=== PATIENT | female | born 1970 | race Caucasian/White ===

== ENCOUNTER 2021-01-19 07:30 | Inpatient (IN) | payer OTHER ==
[~2021-01-19] VITALS: Ht 160 cm; Wt 64.6 kg
[~2021-01-19 07:30] MED LIST changes: -AMLODIPINE BESY10 MG PO; -CEFDINIR300 MG PO; -DOXYCYCLINE MO100 MG PO; -LANTUS100 UNIT/1 SQ; -LISPRO SQ; -METOPROLOL SUCC25 MG PO; -REMERON 15 MG T15 MG PO
[2021-01-19] MEDS ORDERED: CEFDINIR300 MG PO (14:20)
[2021-01-19] MEDS ORDERED: DOXYCYCLINE MO100 MG PO (14:21)
[2021-01-19] MEDS ORDERED: METOPROLOL SUCC25 MG PO (14:22)
[2021-01-19] MEDS ORDERED: INSULIN LI100 UNIT/1 SQ (14:26)
[2021-01-19] MEDS ORDERED: REMERON 15 MG T15 MG PO (14:27)
[2021-01-19] MEDS ORDERED: HYDRALAZINE HCL50 MG PO (14:27)
[2021-01-19] MEDS ORDERED: LISINOPRIL10 MG PO (14:28)
[2021-01-19] MEDS ORDERED: LANTUS100 UNIT/1 SQ (14:29)
[2021-01-28 13:19] LABS: HEMOGLOBIN 10.3 gm/dl (12.3-15.3); RED BLOOD COUNT 3.41 M/UL (4.00-5.10); WHITE BLOOD COUNT 6.3 K/UL (4.5-11.0)
[2021-01-29] MEDS ORDERED: CARVEDILOL6.25 MG PO (10:02)
[2021-01-29] MEDS ORDERED: ISOSORBIDE MONO30 MG PO (10:03)
[2021-01-29] MEDS ORDERED: VITAMIN B-12100 MCG PO (10:03)
[2021-01-29] MEDS ORDERED: VITAMIN D325 MCG PO (10:04)
[2021-01-29 10:34] LABS: HEMOGLOBIN 10.1 gm/dl (12.3-15.3); RED BLOOD COUNT 3.35 M/UL (4.00-5.10); WHITE BLOOD COUNT 7.3 K/UL (4.5-11.0)
--- NOTE | 2021-01-29 13:22 | NUR ---
PT GONE TO SX AT THIS TIME VIA BED
[2021-01-29] MEDS ORDERED: AMLODIPINE BESY10 MG PO (14:19)
[2021-01-30 09:36] LABS: RED BLOOD COUNT 2.65 M/UL (4.00-5.10); WHITE BLOOD COUNT 9.6 K/UL (4.5-11.0)
[2021-01-31 07:00] LABS: RED BLOOD COUNT 2.4 M/UL (4.00-5.10); WHITE BLOOD COUNT 9.5 K/UL (4.5-11.0)
[2021-01-31 10:13] LABS: HBSAG SCREEN Negative (Negative); HEP A AB, IGM Negative (Negative); HEP B CORE AB, IGM Negative (Negative); HEP C VIRUS AB 0.3 (0.0-0.9)
[2021-02-01 08:28] LABS: HEMOGLOBIN 8.4 gm/dl (12.3-15.3); WHITE BLOOD COUNT 9.1 K/UL (4.5-11.0)
[2021-02-01 08:30] LABS: RED BLOOD COUNT 2.98 M/UL (4.00-5.10)
[2021-02-02 03:42] LABS: HEMOGLOBIN 7.6 gm/dl (12.3-15.3); WHITE BLOOD COUNT 8.3 K/UL (4.5-11.0)
[2021-02-02 03:45] LABS: RED BLOOD COUNT 2.64 M/UL (4.00-5.10)
[2021-02-03 03:03] LABS: HEMOGLOBIN 8.2 gm/dl (12.3-15.3); RED BLOOD COUNT 2.75 M/UL (4.00-5.10); WHITE BLOOD COUNT 8.7 K/UL (4.5-11.0)
[2021-02-04 02:56] LABS: HEMOGLOBIN 8.2 gm/dl (12.3-15.3); RED BLOOD COUNT 2.77 M/UL (4.00-5.10); WHITE BLOOD COUNT 7.3 K/UL (4.5-11.0)
[2021-02-05 07:33] LABS: HEMOGLOBIN 7.6 gm/dl (12.3-15.3); RED BLOOD COUNT 2.62 M/UL (4.00-5.10)
[2021-02-05 07:34] LABS: WHITE BLOOD COUNT 9.3 K/UL (4.5-11.0)
[2021-02-06 07:35] LABS: HEMOGLOBIN 7.7 gm/dl (12.3-15.3); RED BLOOD COUNT 2.68 M/UL (4.00-5.10)
[2021-02-06 07:39] LABS: WHITE BLOOD COUNT 11.7 K/UL (4.5-11.0)
[2021-02-06] MEDS ORDERED: [UNRECOGNIZED DRUG - OTHER] IV (11:50)
[2021-02-06] MEDS ORDERED: VANCOMYCIN750 MG/151 IV (11:50)
[2021-02-06] MEDS ORDERED: IPRAT-ALBUT 0.5-3 ML NEB (13:38)
[2021-02-06] MEDS ORDERED: PERCOCET 10-321 EACH PO (13:38)
[2021-02-06] MEDS ORDERED: GABAPENTIN100 MG PO (13:38)
[2021-02-06] MEDS ORDERED: METOPROLOL SUCC50 MG PO (13:38)
[2021-02-06] MEDS ORDERED: RETACRIT10000 UNIT SC (13:38)
[2021-02-06] MEDS ORDERED: HUMALOG 10100 UNITS/ SC (13:38)
== END 2021-02-06 20:36 | DRG 463 ==
LOC: ZOBSOF 01-28 07:18 → PROG CARE 01-28 07:18 → M/S 01-28 07:18 → PROG CARE 01-29 19:43 → M/S 02-05 15:21
PROVIDERS: Internal Medicine; Internal Medicine Nephrology; Orthopaedic Surgery; Physician Assistant; ADMIT Internal Medicine
PROC: 0SPC0JZ Removal of Synthetic Substitute from Right Knee Joint, Open Approach (ICD-10-PCS; 2021-01-29)
PROC: 0Y6C0Z3 Detachment at Right Upper Leg, Low, Open Approach (ICD-10-PCS; 2021-01-29)
PROC: 30233N1 Transfusion of Nonautologous Red Blood Cells into Peripheral Vein, Percutaneous Approach (ICD-10-PCS; principal; 2021-01-29 14:00)
PROC: 5A1D70Z Performance of Urinary Filtration, Intermittent, Less than 6 Hours Per Day (ICD-10-PCS; 2021-01-30)
DX: T84.53XA Infection and inflammatory reaction due to internal right knee prosthesis, initial encounter (principal); N18.6 End stage renal disease; I12.0 Hypertensive chronic kidney disease with stage 5 chronic kidney disease or end stage renal disease; I42.0 Dilated cardiomyopathy; M86.651 Other chronic osteomyelitis, right thigh; D62 Acute posthemorrhagic anemia; E11.69 Type 2 diabetes mellitus with other specified complication; E11.22 Type 2 diabetes mellitus with diabetic chronic kidney disease; K21.9 Gastro-esophageal reflux disease without esophagitis; G25.81 Restless legs syndrome; E03.9 Hypothyroidism, unspecified; E87.5 Hyperkalemia; F17.200 Nicotine dependence, unspecified, uncomplicated; E78.5 Hyperlipidemia, unspecified; F19.10 Other psychoactive substance abuse, uncomplicated; Z96.651 Presence of right artificial knee joint; D63.1 Anemia in chronic kidney disease; J44.9 Chronic obstructive pulmonary disease, unspecified; Z99.2 Dependence on renal dialysis; Z90.49 Acquired absence of other specified parts of digestive tract; Z90.89 Acquired absence of other organs; Z98.890 Other specified postprocedural states; Z79.82 Long term (current) use of aspirin; Z79.899 Other long term (current) drug therapy; Z88.0 Allergy status to penicillin; Z82.3 Family history of stroke; Z83.3 Family history of diabetes mellitus; Z79.4 Long term (current) use of insulin
CPT/HCPCS: 36415; 36430; 71045; 80048; 80053; 80074; 80202; 82962; 83540; 83550; 83735; 83880; 84132; 84443; 85018; 85025; 85027; 85610; 85730; 86850; 86900; 86901; 86920; 87040; 87070; 90935; 90937; 93005; 94760; 97110; 97161; 97166; 97530-GP-CQ; J0692; J1100; J1170; J2001; J2250; J2370; J2704; J2795; J3260; J3370; J7030; J7050; J7070; J7120; P9016; Q5105; U0002

== ENCOUNTER → 2021-01-19 | Outpatient (CLI) | payer OTHER ==
[~2021-01-19] MED LIST: ADMELOG SO100 UNIT/1 SC; AMLODIPINE BESY10 MG PO; AMLODIPINE BESYL5 MG PO; ASPIRIN81 MG PO; ATORVASTATIN CA10 MG PO; BASAGLAR K100 UNIT/1 SQ; BUMETANIDE1 MG PO; CALTRATE 600MG600 MG PO; CARVEDILOL12.5 MG PO; CARVEDILOL25 MG PO; CATAPRES 0.1MG0.1 MG PO; CEFDINIR300 MG PO; COLACE 100MG C100 MG PO; DOXYCYCLINE MO100 MG PO; FERROUS SULFAT325 MG PO; FOLIC ACID 1 MG1 MG PO; FUROSEMIDE40 MG PO; HYDRALAZINE HCL50 MG PO; LANTUS INS100 UTS/M1 SC; LANTUS100 UNIT/1 SQ; LASIX20 MG PO; LEVOFLOXACIN500 MG PO; LEVOTHYROXINE25 MCG PO; LISINOPRIL10 MG PO; LISINOPRIL5 MG PO; LISPRO SQ; METOPROLOL SUCC25 MG PO; NICOTINE PATCH1 EAC2 TOP; OMEPRAZOLE40 MG PO; PHOSLO 667 MG667 MG PO; POLYETHYLENE GL17 GM PO; PROAIR DIGIHAL90 MCG INH; REMERON 15 MG T15 MG PO; ROPINIROLE HCL1 MG PO; SODIUM BICARBO650 M1 PO; STOOL SOFTENER250 MG PO; VALSARTAN-HCTZ1 EAC4 PO; VITAMIN B-121000 MC1 PO; VITAMIN B-121000 MCG PO; VITAMIN C500 M4 PO; VITAMIN D21250 MCG PO; VITAMIN D3125 MCG PO; VITAMIN D325 MCG PO
[2021-01-19 13:28] LABS: HEMOGLOBIN 12.3 gm/dl (12.3-15.3); RED BLOOD COUNT 4.03 M/UL (4.00-5.10); WHITE BLOOD COUNT 7.5 K/UL (4.5-11.0)
== END ==
LOC: EDSTATUS 12:00 → OPSV2 12:00
PROVIDERS: Orthopaedic Surgery
DX: Z01.818 Encounter for other preprocedural examination (principal); I10 Essential (primary) hypertension; E11.9 Type 2 diabetes mellitus without complications; J81.1 Chronic pulmonary edema; J98.11 Atelectasis; J90 Pleural effusion, not elsewhere classified
CPT/HCPCS: 36415; 71046; 80048; 81001; 83036; 85025; 87081; 93005

== ENCOUNTER → 2021-01-26 | Outpatient (CLI) | payer OTHER ==
[~2021-01-26] MED LIST changes: +AMLODIPINE BESY10 MG PO; +CEFDINIR300 MG PO; +DOXYCYCLINE MO100 MG PO; +LANTUS100 UNIT/1 SQ; +LISPRO SQ; +METOPROLOL SUCC25 MG PO; +REMERON 15 MG T15 MG PO
== END ==
LOC: HEART CORB 12:42
DX: S72.91XA Unspecified fracture of right femur, initial encounter for closed fracture (principal)